=== PATIENT | male | born 1960 | race Caucasian/White ===

== ENCOUNTER 2021-06-11 16:08 | Inpatient (IN) | payer OTHER, MEDICARE, SELFPAY ==
[~2021-06-11] VITALS: Ht 165.1 cm; Wt 83.9 kg
[2021-06-11 16:32] VITALS: BP_SYST 143
--- NOTE | 2021-06-11 18:53 | NUR ---
Patient to ER bed 02 to gown for evaluation. Side rails up.
[2021-06-11 18:56] LABS: MEAN CORPUSCULAR HEMOGLOBIN 30 pg (27-31); MEAN CORPUSCULAR HGB CONC 33 % (32-36); MEAN CORPUSCULAR VOLUME 90 fL (79.0-98.0); PLATELET COUNT (AUTO) 280 K/uL (130-430); RED BLOOD CELL COUNT(AUTO) 4.99 MIL/uL (4.2-6.2); RED CELL DISTRIBUTION WIDTH 13.1 % (9.0-15.0); WHITE BLOOD COUNT (AUTO) 21.7 K/uL (4.8-10.8)
--- NOTE | 2021-06-11 19:00 | NUR ---
Pt. bib with concerns regarding blood sugar of 250 to 270s this afternoon, pt. states concerned because sugar has never been that high and he is traveling tomorrow.
--- NOTE | 2021-06-11 19:08 | NUR ---
BS 219 , Dr. Vernon notified.
[2021-06-11 19:23] LABS: PROTHROMBIN TIME 10.3 SECS (9.5-12.5)
[2021-06-11 19:30] LABS: CALCIUM 9.4 mg/dL (8.4-11.0); CREATININE 1.99 mg/dL (0.55-1.30); POTASSIUM 4.5 mmol/L (3.5-5.1)
[2021-06-11 19:39] LABS: ALBUMIN 4.1 g/dL (3.4-4.8); TOTAL BILIRUBIN 0.7 mg/dL (0.0-1.0)
--- NOTE | 2021-06-11 19:56 | NUR ---
ER at bedside examining patient.
[2021-06-11 19:57] LABS: BAND % (MANUAL) 4 % (0-6)
[2021-06-11 19:58] LABS: BASOPHILS % (MANUAL) 0 % (0-2); EOSINOPHILS % (MANUAL) 1 % (0-7); LYMPHOCYTES % (MANUAL) 7 % (20-46); MONOCYTES % (MANUAL) 13 % (0-11)
[2021-06-11 20:14] LABS: BILIRUBIN,URINE NEGATIVE (NEGATIVE); BLOOD, URINE 3+ (NEGATIVE); CLARITY/URINE CLEAR (CLEAR); COLOR,URINE YELLOW (YELLOW); GLUCOSE,URINE 3+ (NEGATIVE); KETONES,URINE NEGATIVE (NEGATIVE); LEUKOCYTE ESTERASE ,URINE NEGATIVE (NEGATIVE); NITRITE, URINE NEGATIVE (NEGATIVE); PH,URINE 5.5 (5.0-8.0); PROTEIN URINE 1+ (NEGATIVE); UROBILINOGEN,URINE 0.2 (0.2-1.0)
[2021-06-11] MEDS ORDERED: METOCLOPRAMIDE HCL 10 MG/2 ML VIAL IVP PRN (20:45)
[2021-06-11] MEDS ORDERED: DEXTROSE 50% JECT 50 ML DISP.SYRIN IVP PRN (20:45)
[2021-06-11] MEDS ORDERED: ONDANSETRON HCL 4 MG/2 ML VIAL IVP ONE (20:45)
[2021-06-11] MEDS: ASPIRIN 325 MG TABLET (ECOTRIN) PO SCH (20:45)
[2021-06-11] MEDS ORDERED: ASPIRIN 81 MG TAB.CHEW PO ONE (20:45)
[2021-06-11] MEDS ORDERED: ENOXAPARIN SODIUM 100 MG/ML SYRINGE SUBCUT ONE (20:45)
[2021-06-11] MEDS ORDERED: METOPROLOL TARTRATE 5 MG/5 ML VIAL IVP ONE (20:45)
[2021-06-11 21:03] LABS: BACTERIA,URINE FEW /HPF (None Seen); MUCUS,URINE None Seen /LPF (None Seen); URIC ACID CRYSTALS,URINE 30-50 /HPF (None Seen); WBC,URINE 0-3 /HPF (0-3)
--- NOTE | 2021-06-11 21:22 | NUR ---
Patient refused Zofran medication this time.
[2021-06-11] MEDS ORDERED: ATEN-41 PO (21:36)
[2021-06-11] MEDS ORDERED: FINA5TAB3 PO (21:40)
[2021-06-11] MEDS ORDERED: TRAM50TA2 PO (21:40)
[2021-06-11] MEDS ORDERED: METH-634 PO (21:40)
[2021-06-11] MEDS ORDERED: LIP40 PO (21:40)
[2021-06-11] MEDS ORDERED: GABA600T PO (21:40)
[2021-06-11] MEDS ORDERED: BUPR-120 PO (21:40)
[2021-06-11] MEDS ORDERED: IMI50 PO (21:40)
--- NOTE | 2021-06-11 21:45 | NUR ---
Medication reconciliation completed with information provided by patient. Any prior medication reconciliation on file was reviewed and corrected.
[2021-06-11 22:03] LABS: THYROID STIMULATING HORMONE 0.6 uIu/mL (0.36-3.74)
--- NOTE | 2021-06-11 22:22 | NUR ---
Patient will be admitted to care of . Admitted to TELE unit. Will go to room 103A. Belongings list completed. Complete and up to date summary report printed. SBAR report to be given at bedside with opportunity for questions.
--- NOTE | 2021-06-11 22:48 | NUR ---
Blood for labwork drawn from hematology nurse. Patient tolerated well.
--- NOTE | 2021-06-11 22:52 | NUR ---
Admission Note Received patient from ER with diagnosis of ACUTE CORONARY SYNDROME. Initial Plan of Care discussed-patient verbalized understanding. Oriented to room, call light, pain management and safety.
[2021-06-11 22:58] VITALS: BP_SYST 159
[2021-06-11] MEDS: cefTRIAXone 1 GM in D5W 50 ML IV SCH (23:11)
[2021-06-11] MEDS: NACL 0.9% 1,000 ML IV SCH (23:12)
[2021-06-11] MEDS: INSULIN REGULAR, HUMAN 100 UNITS/ML, 10 ML VIAL (humuLIN R) SUBCUT PRN (23:26)
[2021-06-12] VITALS (11 sets, daily range): BP systolic 109–191
--- NOTE | 2021-06-12 00:34 | NUR ---
CONSULT: CONSULT CALLED FOR DR. PEDERSON I SPOKE WITH KELLEE UMANA REASON FOR CONSULT: CHEST PAIN REQUESTING CONSULT: [employer] LINE SPLICER PHONE NUMBER: [phone]
[2021-06-12] MEDS: ACETAMINOPHEN 325 MG TABLET PO PRN ×2 (04:07→07:59)
[2021-06-12] MEDS: NACL 0.9% 1,000 ML IV SCH ×3 (05:50→20:40)
[2021-06-12] MEDS: INSULIN REGULAR, HUMAN 100 UNITS/ML, 10 ML VIAL (humuLIN R) SUBCUT PRN ×2 (06:07→18:29)
[2021-06-12 06:20] LABS: BASOPHILS # (AUTO) 0.1 K/uL (0.0-0.2); BASOPHILS % (AUTO) 0.4 % (0.0-2.0); EOSINOPHILS # (AUTO) 0.1 K/uL (0.0-0.4); EOSINOPHILS % (AUTO) 0.4 % (0.0-4.0); HEMATOCRIT 41.5 % (36-54); HEMOGLOBIN 14.1 g/dL (14.0-18.0); LYMPHOCYTES # (AUTO) 1.8 K/uL (1.0-5.5); LYMPHOCYTES % (AUTO) 13.6 % (20.5-51.5); MEAN CORPUSCULAR HEMOGLOBIN 30 pg (27-31); MEAN CORPUSCULAR HGB CONC 34 % (32-36); MEAN CORPUSCULAR VOLUME 89 fL (79.0-98.0); MONOCYTES # (AUTO) 1.3 K/uL (0.0-1.0); MONOCYTES % (AUTO) 9.3 % (1.7-9.3); NEUTROPHILS # (AUTO) 10.3 K/uL (1.8-7.7); NEUTROPHILS % (AUTO) 76.3 % (40.0-70.0); PLATELET COUNT (AUTO) 211 K/uL (130-430); RED BLOOD CELL COUNT(AUTO) 4.68 MIL/uL (4.2-6.2); RED CELL DISTRIBUTION WIDTH 12.9 % (9.0-15.0); WHITE BLOOD COUNT (AUTO) 13.5 K/uL (4.8-10.8)
--- NOTE | 2021-06-12 06:44 | NUR ---
CLOSING NOTE PATIENT IN BED, SLEEPING AT THIS TIME. NO S/S OF ACUTE DISTRESS NOTED. BREATHING EVEN AND UNLABORED. IVF INFUSING WELL, IV SITE PATENT, NO SIGNS OF INFILTRATION OR INFECTION NOTED. SKIN WARM AND DRY TO TOUCH, NO S/S OF HYPOGLYCEMIA NOTED. ALL NEEDS MET THROUGHOUT SHIFT. FALL AND SAFETY PRECAUTIONS MAINTAINED THROUGHOUT SHIFT. WILL CONTINUE TO MONITOR UNTIL PATIENT CARE IS ENDORSED TO ONCOMING DAYSHIFT NURSE.
[2021-06-12 07:07] LABS: ALBUMIN 3.5 g/dL (3.4-4.8); CALCIUM 8.7 mg/dL (8.4-11.0); CREATININE 1.01 mg/dL (0.55-1.30); TOTAL BILIRUBIN 0.7 mg/dL (0.0-1.0)
--- NOTE | 2021-06-12 08:00 | NUR ---
OPENING NOTES PATIENT AAOX 4. LUNGS BILATERALLY CLEAR. ABDOMEN SOFT AND NON DISTENDED. VITALS SIGNS STABLE. AFEBRILE. HAS IV ACCESS ON THE LEFT AC #22. LEFT FOREARM #22 WITH NORMAL SALINE AT 100CC/HR INFUSING ON WELL. CALL LIGHTS WITHIN REACH. INFORMED PATIENT TO CALL FOR ASSISTANCE. BED LOW POSITION, ALARMED AND LOCKED. WILL CONTINUE TO MONITOR PATIENTS STATUS.
[2021-06-12] MEDS: ASPIRIN 325 MG TABLET (ECOTRIN) PO SCH (09:00)
[2021-06-12] MEDS ORDERED: buPROPion HCL 150 MG XL TAB PO ONE (09:00)
[2021-06-12] MEDS ORDERED: methocarbamoL 500 MG TABLET PO ONE (09:00)
[2021-06-12] MEDS ORDERED: traMADol HCL HCL 50 MG TABLET (ULTRAM) PO PRN (09:00)
[2021-06-12] MEDS ORDERED: GABAPENTIN 300 MG CAPSULE PO ONE (09:00)
--- NOTE | 2021-06-12 09:00 | NUR ---
DUE MEDS GIVEN. WITH SIPS OF WATER.
--- NOTE | 2021-06-12 09:05 | NUR ---
DR PEDERSON COST CONTROL SPECIALIST CAME AND EVALUATE THE PATIENT AND INFORMED OF HEADACHE AND BP ELEVATION. MADE ORDERS
[2021-06-12] MEDS: traMADol HCL HCL 50 MG TABLET (ULTRAM) PO SCH ×3 (12:00→23:40)
[2021-06-12] MEDS: cloNIDine HCL 0.1 MG TABLET PO PRN (12:14)
--- NOTE | 2021-06-12 12:35 | NUR ---
SKOOG PATCHING MACHINE OPERATOR, DR PEDERSON WAS CALLED, RE: CLARIFICATION OF THE PRN AND ROUTINE PAIN MEDICATION. SPOKE TO CLARISSA. (DR COSTA MACHINERY CLEANER)
--- NOTE | 2021-06-12 12:43 | NUR ---
AWAITING FOR DR COSTA TO CALL BACK FOR CLARIFICATION OF PAIN MEDICATION
[2021-06-12] MEDS: hydrALAZINE HCL 20 MG/ML VIAL IVP PRN ×2 (13:06→16:17)
--- NOTE | 2021-06-12 13:06 | NUR ---
DR COSTA COVERING FOR DR PEDERSON TO CALL HIM AT 1400PM. FOR CLARIFICATION OF ORDERS.
--- NOTE | 2021-06-12 13:07 | NUR ---
bp 185/109 APRESOLINE 10 MG IV GIVEN. FLUSH WITH NORMAL SALINE. MADE COMFORTABLE
[2021-06-12] MEDS: ONDANSETRON HCL 4 MG/2 ML VIAL IVP PRN ×2 (13:15→20:31)
--- NOTE | 2021-06-12 13:15 | NUR ---
PATIENT FEELS NAUSEAOUS. ZOFRAN 4 MG IV GIVEN. FLUSH AND MADE COMFORTABLE.
[2021-06-12] MEDS: methocarbamoL 500 MG TABLET PO SCH ×2 (16:16→20:30)
[2021-06-12] MEDS: GABAPENTIN 300 MG CAPSULE PO SCH ×2 (16:17→20:27)
--- NOTE | 2021-06-12 16:24 | NUR ---
REFUSING ULTRAM TABLET FOR HEADACHE. STILL VERY PAINFUL. CALLING .
--- NOTE | 2021-06-12 17:17 | NUR ---
ULTRAM PO GIVEN. AND APRESOLINE 10 MG IV GIVEN. MADE COMFORTABLE.
--- NOTE | 2021-06-12 19:30 | NUR ---
OPENING NOTE Received report from day shift RN. Patient is lying in bed resting. A/O x 4. IV site is intact and patent. Breathing is even and unlabored with no s/s of respiratory distress noted. Fall and safety precautions are in place with side rails up and in the lowest position. Will continue to monitor.
--- NOTE | 2021-06-12 19:33 | NUR ---
ENDORSED TO INCOMING NURSE
--- NOTE | 2021-06-12 19:57 | NUR ---
PAGED DR. DELAROSA I SPOKE WITH RAJ EXCHANGE
--- NOTE | 2021-06-12 20:06 | NUR ---
SPOKE TO DR. DELAROSA REGARDING PT'S REQUEST FOR STRONGER PAIN MEDICATION AND MEDICATION ELAVIL. NEW ORDERS RECEIVED. WILL CARRY OUT.
[2021-06-12] MEDS ORDERED: MORPHINE 4 MG INJ. 4 MG/ML VIAL IVP PRN (20:15)
[2021-06-12] MEDS ORDERED: MORPHINE 2 MG/ML INJ. SYRINGE IVP PRN (20:15)
[2021-06-12] MEDS: cefTRIAXone 1 GM in D5W 50 ML IV SCH (20:40)
[2021-06-12] MEDS ORDERED: cefTRIAXone 1 GM VIAL ONE (20:41)
[2021-06-12] MEDS ORDERED: AMITRIPTYLINE HCL 25 MG TABLET (ELAVIL) PO SCH (21:00)
[2021-06-12] MEDS ORDERED: ATENOLOL 25 MG TABLET(TENORMIN) PO SCH (21:00)
[2021-06-12] MEDS ORDERED: FINASTERIDE 5 MG TABLET (PROSCAR) PO SCH (21:00)
[2021-06-12] MEDS ORDERED: ATORVASTATIN 20 MG TABLET PO SCH (21:00)
--- NOTE | 2021-06-13 00:54 | NUR ---
PAGED DR. DACIA COSTA MERCHANDISE MARKER I SPOKE WITH KELLEE UMANA
--- NOTE | 2021-06-13 01:14 | NUR ---
SPOKE TO DR. COSTA REGARDING CRITICAL TROPONIN VALUE. NO NEW ORDERS GIVEN.
[2021-06-13] MEDS: traMADol HCL HCL 50 MG TABLET (ULTRAM) PO SCH ×2 (05:03→11:31)
[2021-06-13] MEDS: NACL 0.9% 1,000 ML IV SCH ×2 (05:04→11:31)
[2021-06-13] MEDS: ONDANSETRON HCL 4 MG/2 ML VIAL IVP PRN (06:41)
--- NOTE | 2021-06-13 06:43 | NUR ---
Nutrition Update Perez Scale 18 noted. Pt admitted for Acute coronary syndrome, DM Diet: Clear liquid BMI: 30.8 kg/m2 RD to follow per nutrition care standards.
[2021-06-13 06:44] LABS: BASOPHILS % (AUTO) 0.3 % (0.0-2.0); EOSINOPHILS # (AUTO) 0.2 K/uL (0.0-0.4); HEMOGLOBIN 13.3 g/dL (14.0-18.0); LYMPHOCYTES # (AUTO) 1.8 K/uL (1.0-5.5); LYMPHOCYTES % (AUTO) 16.1 % (20.5-51.5); MEAN CORPUSCULAR HEMOGLOBIN 30 pg (27-31); MEAN CORPUSCULAR HGB CONC 34 % (32-36); MEAN CORPUSCULAR VOLUME 90 fL (79.0-98.0); MONOCYTES # (AUTO) 1.1 K/uL (0.0-1.0); MONOCYTES % (AUTO) 9.8 % (1.7-9.3); NEUTROPHILS # (AUTO) 7.9 K/uL (1.8-7.7); NEUTROPHILS % (AUTO) 71.8 % (40.0-70.0); PLATELET COUNT (AUTO) 206 K/uL (130-430); RED BLOOD CELL COUNT(AUTO) 4.36 MIL/uL (4.2-6.2); RED CELL DISTRIBUTION WIDTH 13.3 % (9.0-15.0)
--- NOTE | 2021-06-13 06:47 | NUR ---
CLOSING NOTE Pt is resting in bed. No s/s of respiratory distress noted. IV site is intact and patent. Fall and safety precautions are in place with the bed alarm on, bed in the lowest position, and call light within reach. All needs met throughout shift. Will continue to monitor until endorsed to day shift RN.
[2021-06-13 07:08] LABS: CREATININE 0.88 mg/dL (0.55-1.30); TOTAL BILIRUBIN 0.8 mg/dL (0.0-1.0)
--- NOTE | 2021-06-13 07:50 | NUR ---
OPENING NOTES AWAKE, ALERT AND ORIENTED. NO SHORTNESS OF BREATH ON ROOM AIR. DENIES ANY PAIN. IV FLUIDS RUNNING WELL ON LEFT FOREARM. SEEN BY DR. DACIA MD AWARE OF TROPONIN RESULTS. FALL AND SAFETY CHECKS IN PLACE. CALL LIGHT WITHIN REACH. WILL MONITOR.
[2021-06-13 08:00] VITALS: BP_SYST 145
[2021-06-13] MEDS ORDERED: buPROPion HCL 150 MG XL TAB PO SCH (09:00)
[2021-06-13] MEDS: ASPIRIN 325 MG TABLET (ECOTRIN) PO SCH (09:29)
[2021-06-13] MEDS: methocarbamoL 500 MG TABLET PO SCH ×2 (09:29→15:13)
[2021-06-13] MEDS: GABAPENTIN 300 MG CAPSULE PO SCH ×2 (09:29→15:15)
[2021-06-13] MEDS ORDERED: LEVO500T89 PO (10:53)
[2021-06-13] MEDS ORDERED: METR500T PO (10:53)
[2021-06-13 11:30] VITALS: BP_SYST 175
[2021-06-13] MEDS: cloNIDine HCL 0.1 MG TABLET PO PRN (11:30)
--- NOTE | 2021-06-13 11:36 | NUR ---
INCREASED BLOOD PRESSURE; PLACED ON NPO HIGH BP PER COMMERCIAL HVAC SERVICE TECHNICIAN'S REPORT. RE-CHECKED, RESULTED 175/101mmHg. DENIES ANY CHEST PAIN OR SHORTNESS OF BREATH. MEDICATED. WILL RE-CHECK. PLACED PATIENT ON NPO; FOR ABDOMINAL ULTRASOUND.
--- NOTE | 2021-06-13 12:00 | NUR ---
DISCONTINUED TELEMETRY MONITORING
[2021-06-13 12:02] VITALS: BP_SYST 157
[2021-06-13 12:56] VITALS: BP_SYST 141
--- NOTE | 2021-06-13 14:51 | NUR ---
PASTRY COOK APPRENTICE DR PEDERSON WAS CALLED DIRECTLY, RE: CLEARANCE TO DISCHARGE HOME.
[2021-06-13 15:48] VITALS: BP_SYST 166
[2021-06-13 16:18] VITALS: BP_SYST 148
--- NOTE | 2021-06-13 16:55 | NUR ---
DISCHARGE Patient given medication reconciliation form and D/C instructions. Exit Care provided. Patient verbalized understanding. MD discussed with patient the results and treatment provided. Ambulatory with steady gait for discharge to home. Patient in stable condition, ID band removed. IV catheter removed, intact and dressing applied, no active bleeding. Confirmed with preferred pharmacy that levofloxacin and metronidazole is ready for corn picker. Patient educated on pain management. All belongings sent with patient.
== END 2021-06-13 16:50 | disposition home or self-care (01) | DRG 391 ==
LOC: SED 16:08 → STU 20:34 → SMU 06-13 12:00
PROVIDERS: ADMIT Internal Medicine Hospice and Palliative Medicine; ATTEND Internal Medicine Hospice and Palliative Medicine
DX: K52.9 Noninfective gastroenteritis and colitis, unspecified (principal); N17.0 Acute kidney failure with tubular necrosis; I21.A1 Myocardial infarction type 2; I10 Essential (primary) hypertension; E11.65 Type 2 diabetes mellitus with hyperglycemia; G89.4 Chronic pain syndrome; E86.0 Dehydration; N40.0 Benign prostatic hyperplasia without lower urinary tract symptoms; Z20.822 Contact with and (suspected) exposure to COVID-19; E78.5 Hyperlipidemia, unspecified; Z96.659 Presence of unspecified artificial knee joint; Z79.1 Long term (current) use of non-steroidal anti-inflammatories (NSAID); Z79.891 Long term (current) use of opiate analgesic; Z79.899 Other long term (current) drug therapy; Z90.49 Acquired absence of other specified parts of digestive tract
CPT/HCPCS: 36415; 71046-TC; 76700-TC; 80053; 80061; 81000; 82962; 83036; 83605; 83690; 84443; 84484; 85007; 85025; 85027; 85610-TC; 85730-TC; 87040-TC; 93005; 93306; 96372; 96374; 99285; G0378; J0360; J0696; J1650; J1815; J2270; J2405; J3490

== ENCOUNTER 2023-10-16 09:22 | Emergency (ER) | payer MEDICARE, OTHER ==
[~2023-10-16] VITALS: Ht 175.3 cm; Wt 90.7 kg
[~2023-10-16 09:22] MED LIST: ATEN-41 PO; BUPR-120 PO; FINA-37 PO; GABA600T PO; IMI50 PO; LEVO-62 PO; LIP40 PO; METH-634 PO; METR500T PO; TRAM50TA2 PO
[2023-10-16 09:36] VITALS: BP_SYST 133; PULSE 92; RESP 24; TEMP 98.9; O2SAT 99
[2023-10-16 11:42] VITALS: BP_SYST 123; PULSE 87; RESP 18; TEMP 97.9; O2SAT 98
== END 2023-10-16 11:43 | disposition home or self-care (01) ==
LOC: SED 09:22
DX: S09.90XA Unspecified injury of head, initial encounter (principal); E11.9 Type 2 diabetes mellitus without complications; I10 Essential (primary) hypertension; Z88.8 Allergy status to other drugs, medicaments and biological substances; Z79.899 Other long term (current) drug therapy; W22.09XA Striking against other stationary object, initial encounter; Y93.89 Activity, other specified; Y92.89 Other specified places as the place of occurrence of the external cause; Y99.8 Other external cause status
CPT/HCPCS: 70450-TC; 76376; 99284